=== PATIENT | female | born 1935 | race Caucasian/White ===

== ENCOUNTER 2018-04-12 19:57 | Inpatient (IN) | payer MEDICARE, BC ==
[~2018-04-12] VITALS: Ht 165.1 cm; Wt 45.8 kg
[~2018-04-12 19:57] MED LIST: CARB1CAP PO; METH1TAB30 PO; [UNRECOGNIZED DRUG - OTHER] PO
[2018-04-12] MEDS ORDERED: IV NS 0.9% 1,000 ML BAG IV ONE (20:30)
--- NOTE | 2018-04-12 20:40 | NUR ---
BIBCAREGIVERS C/O ONGOING LBP/DIZZINESS/SOB X 6 WEEKS, WORSE WHEN STANDING AND SITTING. S/P L HIP SX X 6 WEEKS AGO HERE. PT IS AAOX4. DENIES N/V/D. DENIES CP. NO S/S OF ACUTE DISTRESS NOTED. RR EVEN AND UNLABORED. FALL PRECAUTIONS IN PLACE. FAMILY MEMBERS BEDSIDE. PT PLACED ON ORGANIZATIONAL PSYCHOLOGIST AND POX. PT SAFETY AND COMFORT MEASURES IN PLACE. COMPLETED PT EVAL.
[2018-04-12 20:45] LABS: BASOPHILS # (AUTO) 0.1 /CMM (0.0-0.2); BASOPHILS % (AUTO) 1.4 % (0.0-2.0); EOSINOPHILS % (AUTO) 2.3 % (0.0-6.0); HEMATOCRIT 37 % (33-45); HEMOGLOBIN 12.2 g/dL (11.5-14.8); LYMPHOCYTES # (AUTO) 2.1 /CMM (0.8-4.8); LYMPHOCYTES % (AUTO) 31.8 % (20.0-44.0); MEAN CORPUSCULAR HGB CONC 33 g/dl (31.0-36.0); MEAN CORPUSCULAR VOLUME 94 fL (82-100); MONOCYTES # (AUTO) 0.6 /CMM (0.1-1.30); MONOCYTES % (AUTO) 9.4 % (2.0-12.0); NEUTROPHILS # (AUTO) 3.6 /CMM (1.8-8.9); NEUTROPHILS % (AUTO) 55.1 % (43.0-81.0); PLATELET COUNT (AUTO) 275 /CMM (150-450); WHITE BLOOD COUNT (AUTO) 6.5 K/uL (4.3-11.0)
[2018-04-12 20:57] LABS: CARBON DIOXIDE 26 mmol/L (21-32); CHLORIDE 97 mmol/L (98-107); CREATININE 0.6 mg/dL (0.6-1.3); GLUCOSE 99 mg/dL (74-106); POTASSIUM 4.2 mmol/L (3.5-5.1); SODIUM SERUM 131 mmol/L (136-145); UREA NITROGEN, BLOOD 18 mg/dL (7-18)
--- NOTE | 2018-04-12 21:03 | NUR ---
URINE SAMPLE COLLECTED AND CALLED LAB FOR [facility] STUDIES PROGRAM CHAIR
[2018-04-12 21:04] LABS: ALANINE AMINOTRANSFERASE 11 U/L (12-78); ALBUMIN 3.6 g/dL (3.4-5.0); ALKALINE PHOSPHATASE 100 U/L (46-116); ASPARTATE AMINOTRANSFERASE 12 U/L (15-37); BILIRUBIN,DIRECT 0.1 mg/dL (0.0-0.2); BILIRUBIN,TOTAL 0.6 mg/dL (0.2-1.0)
--- NOTE | 2018-04-12 21:05 | NUR ---
URINE SAMPLE COLLECTED
[2018-04-12 21:11] LABS: APPEARANCE,URINE Clear (CLEAR); BILIRUBIN,URINE Negative (NEGATIVE); BLOOD, URINE Negative Ery/uL (NEGATIVE); COLOR,URINE Yellow (YELLOW); KETONES,URINE Negative (NEGATIVE); LEUKOCYTE ESTERASE ,URINE Small (NEGATIVE); NITRITE, URINE Negative (NEGATIVE); PH,URINE 7.5 (5.0-8.0); PROTEIN,URINE Negative (NEGATIVE); UGLUCOSE Negative (NEGATIVE); UROBILINOGEN,URINE 0.2 EU/dL (0.2)
[2018-04-12 21:18] LABS: BACTERIA,URINE None seen /HPF (None Seen); RBC,URINE NONE SEEN /HPF (0-2); SQUAMOUS EPITHELIAL CELL,UR Few /HPF (None Seen); WBC,URINE 0-2 /HPF (0-3)
[2018-04-12] MEDS ORDERED: IV NS 0.9% 1,000 ML IV PRN (21:26)
[2018-04-12] MEDS ORDERED: HYDROCODONE/APAP 5/325MG 1 EACH TABLET PO PRN ×2 (21:30→23:15)
[2018-04-12] MEDS ORDERED: Z GUARD REMEDY 2 OZ OINT TP PRN ×2 (21:30→23:15)
[2018-04-12] MEDS ORDERED: ONDANSETRON HCL/PF 4 MG/2 ML VIAL IVP PRN ×2 (21:30→23:15)
[2018-04-12] MEDS ORDERED: ACETAMINOPHEN 325 MG TABLET PO PRN ×2 (21:30→23:15)
[2018-04-12] MEDS ORDERED: MAG HYDROX/AL HYDROX/SIMETH 30 ML UDC PO PRN ×2 (21:30→23:15)
[2018-04-12] MEDS ORDERED: ZOLPIDEM TARTRATE 5 MG TABLET PO PRN ×2 (21:30→23:15)
[2018-04-12] MEDS ORDERED: MAGNESIUM HYDROXIDE 30 ML UDC PO PRN ×2 (21:30→23:15)
--- NOTE | 2018-04-12 22:55 | NUR ---
REPORT GIVEN TO [facility] APPRENTICE GEM FOR [facility].
[2018-04-12 23:00] VITALS: BP 122/74
[2018-04-12 23:03] VITALS: BP 122/78
--- NOTE | 2018-04-12 23:05 | NUR ---
ROCK CRUSHING MACHINE OPERATORBEAD STRINGER NOTES RECEIVED PATIENT FROM RN RAMONA, ALREADY ADMITTED ON MS 3 WEST FLOOR TO ROOM 307-2. NO C/O PAIN, NO ACUTE DISTRESS VERBALIZED. A & O X 2-3 WITH SLIGHT FORGETFULNESS PER [facility] TRE. IV ACCESS TO LFA, INTACT PATENT, WILL CONTINUE WITH IVF ORDERED. ON TELE MONITORING WITH SR 74. ASSISTED WITH ADL CARE. BODY CHECK DONE, PHOTO TAKEN, PLACED IN THE CHART, ONLY LEFT HIP HEALING SX SCAR NOTED. ABLE TO WALK WITH THE WALKER WITH 1 PERSON STAND BY ASSIST DUE TO UNSTEADY GAIT, PER TRE. NO HYPOTENSION NOTED AFTER ADMISSION. ALL MEDICINE ORDERS VERIFIED WITH MD, NOTED & CARRIED OUT. BED IN LOW LOCKED POSITION. CALL LIGHT WITHIN REACH. ALL BELONGINGS ACCOUNTED FOR & DOCUMENTED BY JOSE BARRAGAN. BED ALARM ON. WILL CONTINUE TO MONITOR CLOSELY.
[2018-04-13] VITALS (8 sets, daily range): BP systolic 113–146; BP diastolic 50–69
[2018-04-13] MEDS: IV NS 0.9% 1,000 ML IV PRN ×2 (00:07→14:19)
--- NOTE | 2018-04-13 00:20 | NUR ---
SPOKE TO DR. CHANG PATIENT & FLAT EXAMINER VERBALIZED OF CONTINUING LEVODOPA/CARBIDOPA PATIENT HAS BEEN TAKING AT HOME, MD MADE AWARE, MD STATED THAT SHE RECONCILED THE MEDICINE BUT WILL DOUBLE CHECK AGAIN.
--- NOTE | 2018-04-13 02:00 | NUR ---
TABLE GAMES DEALER NOTE DR. CHANG VISITED THE UNIT, VERIFIED WITH MD & MEDS WERE RECONCILED BY MD ALREADY BUT PHARMACY NEEDS TO VERIFY 2 MEDS THAT ARE PENDING, WILL ENDORSE TO AM RN TO FOLLOW UP WITH PHARMACY IN AM.
--- NOTE | 2018-04-13 06:54 | NUR ---
FERMENTOLOGIST CLOSING NOTES PATIENT SLEPT WELL AT NIGHT. NO C/O PAIN, NO ACUTE DISTRESS VERBALIZED. A & O X 2-3 WITH FORGETFULNESS. IV ACCESS TO LFA, INTACT PATENT, INFUSING WITH IVF. ON TELE MONITORING WITH SR 68. ASSISTED WITH ADL CARE. ABLE TO WALK WITH THE WALKER WITH 1 PERSON STAND BY ASSIST DUE TO UNSTEADY GAIT, PER TRE. NO HYPOTENSION NOTED. BED IN LOW LOCKED POSITION. CALL LIGHT WITHIN REACH. BED ALARM ON. WILL ENDORSE TO AM RN FOR CONTINUITY OF CARE.
[2018-04-13] MEDS: RYTARY PO SCH ×3 (08:00→19:32)
[2018-04-13] MEDS: Methenamine Hippurate 1 GM PO SCH ×2 (08:29→16:28)
--- NOTE | 2018-04-13 08:29 | NUR ---
MS RN INITIAL NOTES Patient is awake, sitting up in bed, had breakfast with good appetite. Stable in RA, oxygen sat 96%. Sinus rhythm in the tele monitor, denies pain. IVF infusing, maintained at 75ml/hr. Maintained safety, will cont to monitor. Caregiver at the bedside.
--- NOTE | 2018-04-13 08:31 | NUR ---
Rytary home medication non administered, per patient she took the medication already today "few minutes ago" caregiver thais at the bed side. Educate patient, explained safety medication administration, patient verbalized understanding. Home medication send to pharmacy for review.
[2018-04-13 09:40] LABS: BASOPHILS # (AUTO) 0.1 /CMM (0.0-0.2); BASOPHILS % (AUTO) 1.2 % (0.0-2.0); EOSINOPHILS % (AUTO) 1.4 % (0.0-6.0); HEMATOCRIT 34 % (33-45); HEMOGLOBIN 11.5 g/dL (11.5-14.8); LYMPHOCYTES # (AUTO) 1.8 /CMM (0.8-4.8); LYMPHOCYTES % (AUTO) 32.9 % (20.0-44.0); MEAN CORPUSCULAR HGB CONC 34 g/dl (31.0-36.0); MEAN CORPUSCULAR VOLUME 94 fL (82-100); MONOCYTES # (AUTO) 0.4 /CMM (0.1-1.30); MONOCYTES % (AUTO) 6.6 % (2.0-12.0); NEUTROPHILS # (AUTO) 3.1 /CMM (1.8-8.9); NEUTROPHILS % (AUTO) 57.9 % (43.0-81.0); PLATELET COUNT (AUTO) 245 /CMM (150-450); RED BLOOD CELL COUNT(AUTO) 3.64 MIL/uL (4.0-5.2); WHITE BLOOD COUNT (AUTO) 5.3 K/uL (4.3-11.0)
[2018-04-13 09:45] LABS: CALCIUM, SERUM 8.1 mg/dL (8.5-10.1); CARBON DIOXIDE 23 mmol/L (21-32); CHLORIDE 103 mmol/L (98-107); CREATININE 0.6 mg/dL (0.6-1.3); GLUCOSE 126 mg/dL (74-106); SODIUM SERUM 136 mmol/L (136-145); UREA NITROGEN, BLOOD 11 mg/dL (7-18)
[2018-04-13 09:49] LABS: MAGNESIUM 1.9 mg/dL (1.8-2.4); PHOSPHORUS 3.6 mg/dL (2.5-4.9)
[2018-04-13 09:50] LABS: CHOLESTEROL 191 mg/dL (<200); HDL CHOLESTEROL 113 mg/dL (40-60); LDL 84 mg/dL (0-99); TRIGLYCERIDES 34 mg/dL (30-150)
[2018-04-13 09:53] LABS: IRON, SERUM 89 ug/dl (50-175); TOTAL IRON BINDING CAPACITY 307 ug/dl (250-450)
[2018-04-13 10:23] LABS: FERRITIN 49 ng/mL (8-388)
--- NOTE | 2018-04-13 15:20 | NUR ---
Verified medication Synthroid, per patient she still currently taking Synthroid at home. Orders clarified with Dr. Virgen, continue home medication Synthroid, orders place.
--- NOTE | 2018-04-13 18:39 | NUR ---
MS RN CLOSING NOTES Patient is awake, sitting up in bed, had dinner with fair appetite. Stable on RA, sinus rhythm in the tele monitor. Ambulates independently with walker/standby assist. Orthostatic BP- negative. IVF infusing, maintained at 75ml/hr. Maintained safety, caregiver at the bedside. Will endorse to oncoming RN.
--- NOTE | 2018-04-13 19:07 | NUR ---
MS RN OPENING NOTES Received patient sitting on bed playing board game with family. No SOB/respiratory distress noted. On tele monitor with SR 77. with peripheral IV line LFA G#18 with NS infusing well @ 75ml/hr as ordered. Patient denies any discomfort at this time. Call light within easy reach. Will continue to monitor accordingly.
[2018-04-14] VITALS: BP 123/65
[2018-04-14 04:00] VITALS: BP 132/64
[2018-04-14] MEDS: IV NS 0.9% 1,000 ML IV PRN (04:29)
--- NOTE | 2018-04-14 06:50 | NUR ---
MS RN CLOSING NOTES Patient asleep on right sidelying on bed. On RA, saturating well. With patent peripheral IV line with NS infusing @ 75ml/hr as ordered. Due meds given as ordered. Patient was able to void with bedside comode. Caregiver at bedside throughout the shift. No new complaints noted. Endorsed to the next shift.
[2018-04-14 07:14] LABS: BASOPHILS # (AUTO) 0.1 /CMM (0.0-0.2); BASOPHILS % (AUTO) 0.9 % (0.0-2.0); CALCIUM, SERUM 8.6 mg/dL (8.5-10.1); CARBON DIOXIDE 27 mmol/L (21-32); CHLORIDE 104 mmol/L (98-107); CREATININE 0.6 mg/dL (0.6-1.3); EOSINOPHILS % (AUTO) 2.5 % (0.0-6.0); GLUCOSE 90 mg/dL (74-106); HEMATOCRIT 36 % (33-45); HEMOGLOBIN 12.1 g/dL (11.5-14.8); LYMPHOCYTES % (AUTO) 36.2 % (20.0-44.0); MEAN CORPUSCULAR HGB CONC 33 g/dl (31.0-36.0); MEAN CORPUSCULAR VOLUME 93 fL (82-100); MONOCYTES # (AUTO) 0.4 /CMM (0.1-1.30); MONOCYTES % (AUTO) 7.9 % (2.0-12.0); NEUTROPHILS # (AUTO) 2.9 /CMM (1.8-8.9); NEUTROPHILS % (AUTO) 52.5 % (43.0-81.0); PLATELET COUNT (AUTO) 263 /CMM (150-450); RED BLOOD CELL COUNT(AUTO) 3.91 MIL/uL (4.0-5.2); SODIUM SERUM 137 mmol/L (136-145); UREA NITROGEN, BLOOD 13 mg/dL (7-18); WHITE BLOOD COUNT (AUTO) 5.5 K/uL (4.3-11.0)
--- NOTE | 2018-04-14 07:17 | NUR ---
RN OPENING NOTES PT RECEIVED IN BED AT LOWEST AND LOCKED POSITION WITH SIDE RAILS UP X2, A/O 2-3, BREATHING EVEN AND UNLABORED ON RA, NO S/S OF PAIN OR DISTRESS NOTED AT THIS TIME, IV IS PATENT AND INTACT, CAREGIVER PRESENT AT THE BEDSIDE, SAFETY PRECAUTIONS IN PLACE, CALL LIGHT WITHIN REACH, WILL MONITOR ACCORDINGLY
[2018-04-14] MEDS: RYTARY PO SCH (07:29)
[2018-04-14] MEDS ORDERED: LEVOTHYROXINE SODIUM 75 MCG TABLET PO SCH (07:30)
[2018-04-14] MEDS: Methenamine Hippurate 1 GM PO SCH (08:32)
--- NOTE | 2018-04-14 09:52 | NUR ---
DISCHARGE NOTES PT WAS DISCHARGED AND TAKEN DOWN VIA WHEELCHAIR BY JOSE REECE AT THIS TIME. PT WAS DISCHARGED AT THIS TIME IN MEDICALLY STABLE CONDITION BACK HOME WITH 24 HOUR CAREGIVER IN THEIR PRIVATE CAR. ALL DISCHARGE PAPERWORK WAS DISCUSSED WITH THE PATIENT. ALL PAPERWORK INCLUDING BELONGING LIST WERE SIGNED. ALL BELONGINGS WERE TAKEN WITH THEM. HOME MEDICATION WAS RETURNED WELL TO THE PATIENT. WOUND PHOTO WAS TAKEN AND PLACED IN THE CHART. IV AND ID BAND WERE REMOVED. ALL OF THEIR NEEDS WERE ATTENDED TO DURING THEIR STAY.
== END 2018-04-14 09:52 | disposition home health service (06) | DRG 641 ==
LOC: ER 20:02 → TELE 23:16
PROVIDERS: ADMIT Internal Medicine; ATTEND Family Medicine
DX: E86.0 Dehydration (principal); E87.1 Hypo-osmolality and hyponatremia; I95.9 Hypotension, unspecified; G20 Parkinson's disease; E03.9 Hypothyroidism, unspecified; Z85.3 Personal history of malignant neoplasm of breast; R53.1 Weakness; M19.90 Unspecified osteoarthritis, unspecified site; Z98.890 Other specified postprocedural states; R55 Syncope and collapse; J42 Unspecified chronic bronchitis; E86.1 Hypovolemia
CPT/HCPCS: 36415; 71045-TC; 80048-TC; 80061-TC; 80076-TC; 81000-TC; 82728-TC; 83540-TC; 83605-TC; 83735-TC; 84100-TC; 84484-TC; 85025-TC; 85730-TC; 87040-TC; 87081-TC; 87086-TC; A4606; G0378; J7030; Z7610

== ENCOUNTER 2018-11-08 16:40 | Emergency (ER) | payer MEDICARE, BC ==
[~2018-11-08] VITALS: Ht 152.4 cm; Wt 50.3 kg
--- NOTE | 2018-11-08 16:48 | NUR ---
CAME IN W CAREGIVER FOR BACK PAIN X 1 WEEK, WORSE TODAY, MRI DONE BY PMD, NO RESULTS YET. TO ER BED 1, HOOKED TO MONITOR, PROVIDED W WARM BLANKET, PT AOX3 , NOT IN DISTRESS, AWAITING MD CAPUTO
--- NOTE | 2018-11-08 17:12 | NUR ---
DR CASTRO AT BEDSIDE FOR EVAL.
[2018-11-08] MEDS ORDERED: KETOROLAC TROMETHAMINE INJ 60 MG/2 ML VIAL IM ONE (17:30)
[2018-11-08] MEDS ORDERED: KETOROLAC TROMETHAMINE INJ 30 MG/ML VIAL ONE (17:32)
[2018-11-08 17:45] VITALS: BP 127/75
--- NOTE | 2018-11-08 17:45 | NUR ---
Patient discharged to home with caregiver in stable condition. Written and verbal after care instructions given. Patient verbalizes understanding of instruction.
== END 2018-11-08 17:45 | disposition home or self-care (01) ==
LOC: ER 16:42
DX: M54.6 Pain in thoracic spine (principal); Z98.890 Other specified postprocedural states; Z85.3 Personal history of malignant neoplasm of breast; Z79.899 Other long term (current) drug therapy
CPT/HCPCS: 96372; 99283; J1885

== ENCOUNTER 2019-03-10 12:38 | Emergency (ER) | payer BC, MEDICARE ==
[~2019-03-10] VITALS: Ht 165.1 cm; Wt 46.7 kg
--- NOTE | 2019-03-10 12:51 | NUR ---
PT JOSEE, WEAK x 6 MONTHS, PT STATES "MY PMD DOESN'T KNOW WHATS WRONG WITH ME". -[place], -[place]. PT AAOX4, VSS, BREATHING EVEN AND UNLABORED ON ROOM AIR. PT CONNECTED TO THE MONITOR.
--- NOTE | 2019-03-10 13:00 | NUR ---
AWAITING FOR MD CAPUTO
--- NOTE | 2019-03-10 13:05 | NUR ---
WATER JET OPERATOR AT BEDSIDE TO DRAW BLOOD.
[2019-03-10 13:09] LABS: BASOPHILS # (AUTO) 0.1 /CMM (0.0-0.2); BASOPHILS % (AUTO) 0.8 % (0.0-2.0); EOSINOPHILS % (AUTO) 0.6 % (0.0-6.0); HEMATOCRIT 40 % (33-45); HEMOGLOBIN 13.3 g/dL (11.5-14.8); LYMPHOCYTES # (AUTO) 2.2 /CMM (0.8-4.8); LYMPHOCYTES % (AUTO) 30.3 % (20.0-44.0); MEAN CORPUSCULAR HGB CONC 33 g/dl (31.0-36.0); MEAN CORPUSCULAR VOLUME 95 fL (82-100); MONOCYTES # (AUTO) 0.6 /CMM (0.1-1.30); MONOCYTES % (AUTO) 8.6 % (2.0-12.0); NEUTROPHILS # (AUTO) 4.3 /CMM (1.8-8.9); NEUTROPHILS % (AUTO) 59.7 % (43.0-81.0); PLATELET COUNT (AUTO) 280 /CMM (150-450); RED BLOOD CELL COUNT(AUTO) 4.22 MIL/uL (4.0-5.2); WHITE BLOOD COUNT (AUTO) 7.3 K/uL (4.3-11.0)
[2019-03-10 13:19] LABS: CALCIUM, SERUM 9.5 mg/dL (8.5-10.1); CARBON DIOXIDE 27 mmol/L (21-32); CHLORIDE 97 mmol/L (98-107); CREATININE 0.7 mg/dL (0.6-1.3); GLUCOSE 93 mg/dL (74-106); SODIUM SERUM 132 mmol/L (136-145); UREA NITROGEN, BLOOD 14 mg/dL (7-18)
[2019-03-10 13:31] LABS: ALANINE AMINOTRANSFERASE 11 U/L (12-78); ALBUMIN 3.9 g/dL (3.4-5.0); ALKALINE PHOSPHATASE 75 U/L (46-116); ASPARTATE AMINOTRANSFERASE 9 U/L (15-37); B-TYPE NATRIURETIC PEPTIDE 128 PG/ML (0-125); BILIRUBIN,DIRECT 0.1 mg/dL (0.0-0.2); BILIRUBIN,TOTAL 0.6 mg/dL (0.2-1.0); LIPASE 379 U/L (73-393); TOTAL PROTEIN, SERUM 7.3 g/dL (6.4-8.2)
--- NOTE | 2019-03-10 14:09 | NUR ---
Patient discharged to home in stable condition. Written and verbal after care instructions given. Patient verbalizes understanding of instruction.
[2019-03-10 14:10] VITALS: BP 132/84
== END 2019-03-10 14:11 | disposition home or self-care (01) ==
LOC: ER 12:38
DX: R53.1 Weakness (principal); Z98.890 Other specified postprocedural states; Z85.3 Personal history of malignant neoplasm of breast; Z79.899 Other long term (current) drug therapy
CPT/HCPCS: 36415; 80048-TC; 80076-TC; 83690-TC; 83880; 84443-TC; 84484-TC; 85025-TC